=== PATIENT | male | born 2000 | race Caucasian/White ===

== ENCOUNTER 2024-09-13 10:03 | Emergency (ER) | payer BC ==
[~2024-09-13] VITALS: Ht 170.2 cm; Wt 90.7 kg
[2024-09-13] MEDS ORDERED: NAPR-1164 PO (10:25)
[2024-09-13] MEDS ORDERED: KETOROLAC TROMETHAMINE 15 MG/ML VIAL ONE (11:04)
[2024-09-13] MEDS: KETOROLAC TROMETHAMINE 15 MG/ML VIAL IM ONE (11:12)
[2024-09-13 11:14] VITALS: BP 125/82; TEMP 98.6; O2SAT 99
== END 2024-09-13 11:15 | disposition home or self-care (01) ==
LOC: ER 10:08
DX: M54.2 Cervicalgia (principal); M79.10 Myalgia, unspecified site; Z88.0 Allergy status to penicillin; Z60.2 Problems related to living alone
CPT/HCPCS: J1885